=== PATIENT | female | born 1965 | race African-American/Black ===

== ENCOUNTER 2016-09-10 14:46 | Emergency (ER) | payer SELFPAY ==
[2016-09-10 15:23] VITALS: BP 173/78; PULSE 71; TEMP 99.9; BMI 29.2
[2016-09-10 15:54] LABS: LEUKOCYTES/URINE 1+ (NEGATIVE); RBC/URINE 0-2 (0-5); URINE OCCULT BLOOD NEG (NEG/TRACE); WBC/URINE 20-30 (0-5)
[2016-09-10 15:55] LABS: NITRITE/URINE POS (NEGATIVE)
[2016-09-10] MEDS ORDERED: TRIMETHOPRIM-SULFAMETHOXAZOLE TAB PO ONE (16:17)
[2016-09-10] MEDS ORDERED: KETOROLAC TROMETHAMINE 10 MG TAB PO ONE (16:18)
--- NOTE | 2016-09-10 16:21 | EDPRACDOC ---
- General Information Chief Complaint: Female Urogenital Problems Stated Complaint: CHEST PAIN/ UTI/ MED REFILL Time Seen by Provider: 09/10/16 16:07 Information Source: Patient Home Medications: Home Medications Dexlansoprazole [Dexilant] 60 mg PO DAILY 09/10/16 Hydrochlorothiazide 25 mg PO DAILY 09/10/16 Ketorolac Tromethamine [Toradol] 10 mg PO Q6H PRN #20 tab 09/10/16 Metoprolol Tartrate 25 mg PO BID 09/10/16 Olmesartan Medoxomil [Benicar] 40 mg PO DAILY 09/10/16 Prednisone [Sterapred DS 10 mg/12 day pack] 48 tab PO DIR #1 pack 09/10/16 Sulfamethoxazole/Trimethoprim [Bactrim Ds Tablet] 1 tab PO BID #20 tab 09/10/16 Allergies/Adverse Reactions: Allergies Allergy/AdvReac Type Severity Reaction Status Date / Time acetaminophen [From Tylenol] Allergy See Verified 09/10/16 15:25 Comments oxycodone Allergy Itching Verified 09/10/16 15:25 Penicillins Allergy Rash-Genera Verified 09/10/16 15:25 lized - History of Present Illness HPI: PATIENT PRESENTS C/O DYSURIA FOR DAYS WITH MILD SUPRAPUBIC PAIN. NO FLANK PAIN. NO FEVER. NO N/V. PRIOR UTI WITH TREATMENT IN PCN FAMILY. DENIES IMPROVEMENT SINCE THEN Onset: 4 MONTHS Urinary Pain Location: Reports: Suprapubic Symptom Onset: Reports: Gradual Pain Severity: Moderate Pain Quality: Reports: Aching History of: Reports: UTI : No Oral Intake: Normal Urinary Output: Normal Associated Signs and Symptoms: Reports: Abdominal Pain ED Past Medical History - History Reviewed Yes Nurses notes reviewed and agree except as marked Travel Outside of [place] in the Last 3 Months?: No - Patient Medical History Cardiac History: Reports: Hypertension GI/ History: Reports: Gastroesophageal Reflux Psychological History: Denies: Depression - Social Medical History Smoking Status: Heavy tobacco smoker (5 or more cigarettes/day or daily pipe/ cigar) ETOH: None Substance Abuse: None Lives With: Family Lives In: Home EDM Review of Systems - Review of Systems ROS Negative Except as Marked: Yes All systems reviewed and were negative except as marked Constitutional: No Symptoms Reported. negative: Fever, Chills, Weakness, Fatigue, Loss of Appetite Eyes: No Symptoms Reported. negative: Redness, Blurred Vision, Double Vision, Discharge, Pain, Light Sensitive, Photophobia Ears: No Symptoms Reported. negative: Pain, Hearing Loss, Drainage, Ear Pulling Throat: No Symptoms Reported. negative: Pain, Swelling Nose: No Symptoms Reported. negative: Congestion, Bleeding, Discharge, Injection, Swelling, Deformity, Ecchymosis, Tender, Abrasion, Laceration Mouth: No Symptoms Reported. negative: Pain, Drooling Respiratory: No Symptoms Reported. negative: Cough, Brassy Cough, Barky Cough, Shortness of Breath, Wheezing, Hemoptysis Cardiovascular: No Symptoms Reported. negative: Chest Pain, Palpitations, Syncope, Edema, Orthopnea, PND, Skin Mottling, Cyanosis Gastrointestinal: No Symptoms Reported. negative: Pain, Constipation, Nausea, Vomiting, Diarrhea, Melena, Formula Intolerance Genitourinary: Dysuria. negative: Bleeding, Discharge, Frequency, Hematuria, , Testicular Pain Neurological: No Symptoms Reported. negative: Headache, Dizziness, Seizure, Numbness, Weakness, Speech Difficulty, Gait Difficulty Musculoskeletal: No Symptoms Reported. negative: Neck, Chestwall, Ribs, Back, Shoulder, Arm, Elbow, Forearm, Wrist, Hand, Pelvis, Hip, Femur, Knee, Leg, Ankle , Foot Integumentary: No Symptoms Reported. negative: Itching, Rash, Bruising, Wound Allergic/Immunologic: No Symptoms Reported. negative: Hives, Itching Hematologic: No Symptoms Reported. negative: Lymphadenopathy, Easy Bruising, Easy Bleeding Endocrine: No Symptoms Reported. negative: Weight Gain, Weight Loss Psychiatric: No Symptoms Reported. negative: Anxiety, Depression, Hallucinations, Insomnia, Suicidal - Physical Exam Constitutional: Alert (Awake), No apparent distress Oriented to: Time, Person, Place Last recorded Vital Signs: Last Vital Signs Temp 99.9 F 09/10/16 15:12 Pulse 71 09/10/16 15:12 Resp 18 09/10/16 15:12 BP 173/78 09/10/16 15:12 Pulse Ox 98 09/10/16 15:12 Oxygen Pulse Oxygen Saturation 98 O2 Device Oxygen Flow Rate Fraction of Inspired Oxygen ( FIO2) - HEENT Head: Normal ( normocephalic) Eye Exam: Normal (PERRL, EOMI, Sclera white) Oropharynx: Normal (Pharynx:Moist without exudate,Gums-no swelling) Tympanic Membrane: Normal ENT EAC: Normal TMJ: Normal Nose: No Symptoms Reported (septum midline) Neck: Normal (FROM, trachea at midline) - Respiratory/Cardiovascular Respiratory: Normal - CTA (BBS clear to auscultation without adventitious sounds ) Cardiovascular: Normal (RRR without murmur, gallop or rub) - GI Auscultation: Normal (NABS) Palpation: Normal (Soft,No rebound or guarding, non distended) Tenderness: Non tender Singleton's Sign: Negative - Musculoskeletal Back: Normal (Non-Tender) Extremities: Normal (Normal tone, Pulses 2+ No cyanosis or edema, FROM) - Integumentary Skin: Normal, Warm, Dry Lymphatics: Normal (no adenopathy) - Neurologic Memory Impaired: Normal Motor Function: Normal (Normal tone, Pulses 2+ No cyanosis or edema, FROM) Cranial Nerve: Normal (CN II-X11 intact sensation, strength 5/5) Cerebellar: Normal Mood Description: Normal Perception: Normal - Results Urine Color Dark yellow 09/10/16 15:30 Urine Clarity Hazy 09/10/16 15:30 Urine pH 7.0 (5.0-8.0) 09/10/16 15:30 Ur Specific [place] 1.005 (1.003-1.035) 09/10/16 15:30 Urine Protein 1+ (NEG/TRACE) H 09/10/16 15:30 Urine Glucose (UA) Neg (NEGATIVE) 09/10/16 15:30 Urine Ketones Neg (NEGATIVE) 09/10/16 15:30 Urine Occult Blood Neg (NEG/TRACE) 09/10/16 15:30 Urine Nitrite Pos (NEGATIVE) H 09/10/16 15:30 Urine Bilirubin 2+ (NEGATIVE) H 09/10/16 15:30 Urine Urobilinogen 12.0 MG/DL (0-1) 09/10/16 15:30 Ur Leukocyte Esterase 1+ (NEGATIVE) H 09/10/16 15:30 Urine RBC 0-2 (0-5) 09/10/16 15:30 Urine WBC 20-30 (0-5) H 09/10/16 15:30 Urine WBC Clumps Present (NONE) H 09/10/16 15:30 Ur Epithelial Cells 2+ 09/10/16 15:30 Urine Bacteria 4+ (NEG/FEW) H 09/10/16 15:30 Urine Mucus Occ (NEG/OCC) 09/10/16 15:30 Lab Results 09/10/16 15:30 Urine Color Dark yellow Urine Clarity Hazy Urine pH 7.0 Ur Specific [place] 1.005 Urine Protein 1+ H Urine Glucose (UA) Neg Urine Ketones Neg Urine Occult Blood Neg Urine Nitrite Pos H Urine Bilirubin 2+ H Urine Urobilinogen 12.0 Ur Leukocyte Esterase 1+ H Urine RBC 0-2 Urine WBC 20-30 H Urine WBC Clumps Present H Ur Epithelial Cells 2+ Urine Bacteria 4+ H Urine Mucus Occ Decision Time to Discharge: 16:20 - Departure Yes I personally saw and evaluated the patient. Disposition: Home Condition: Good Final Diagnosis: UTI (urinary tract infection) Qualifiers: Urinary tract infection type: acute cystitis Hematuria presence: without hematuria Qualified Code(s): N30.00 - Acute cystitis without hematuria Instructions: Urinary Tract Infection in Women (ED), Dysuria Education/Counseling Given To: Patient Education/Counseling Given Regarding: Diagnosis, Treatment, Prognosis, Follow Up Referrals: None,No Provider [Primary Care Provider] - One Week Gulshan Serra MD [Staff Physician] - One Week Mateo Hernández MD [Staff Physician] - One Week Prescriptions: Ketorolac Tromethamine [Toradol] 10 mg PO Q6H PRN #20 tab PRN Reason: Pain Prednisone [Sterapred DS 10 mg/12 day pack] 48 tab PO DIR #1 pack Sulfamethoxazole/Trimethoprim [Bactrim Ds Tablet] 1 tab PO BID #20 tab
[2016-09-10] MEDS ORDERED: PREDNISONE 20 MG TAB PO ONE (16:26)
== END 2016-09-10 16:36 | disposition home or self-care (01) ==
LOC: ED 14:46
DX: N30.00 Acute cystitis without hematuria (principal)
CPT/HCPCS: 81001; 87077; 87086; 87186; 99283; J3490